=== PATIENT | female | born 1995 | race Caucasian/White ===

== ENCOUNTER 2024-08-01 19:18 | Inpatient (IN) ==
--- NOTE | 2024-08-01 20:28 | History & Physical Report ---
Date of Service August 01, 2024 Assessment & Plan (1) Term : (2) PROM (premature rupture of membranes): Plan admit, iv, labs. plan pitcon induction since no labor. fhts categ 1. History of Present Illness Chief Complaint: leaking fluid Primary Care Provider: Mayank Askew III, CRNP 29yo at 37+wks egrenard presents to LD with gross SROM, clear fluid at 600pm today. Noting few bladder pain sx, like a cramp. No bleeding. +FM PNC c/b 1. IUGR but resolved by 32wk growth u/s 2. Hypothyroid PNL rhpos, ri, gbs neg OBH: g1 GYNH: nl paps no stds Allergies Allergy/AdvReac Type Severity Reaction Status Date / Time No Known Allergies Allergy Verified 07/31/24 09:37 Home Medications Medication Instructions Recorded Confirmed Type [id number] PO 01/04/24 07/31/24 History [ Plus] levothyroxine 75 mcg tablet 75 mcg PO DAILY #90 tabs 05/14/24 07/31/24 Rx (Synthroid) Patient History Medical History (Updated 08/01/24 @ 20:31 by Courtney Rojo MD, FACOG) Varicella vaccination Hypothyroid Headache Onychomycosis Surgical History H/O oral surgery Family History (Updated 01/04/24 @ 15:20 by Minerva Ignacio RN) Mother Varicose veins of both lower extremities Grandfather (Maternal) Cancer Grandmother (Maternal) Diabetes Denies family history of Ovarian cancer Prostate cancer Myocardial infarction Breast cancer Colorectal cancer Social History (Updated 01/04/24 @ 15:19 by Minerva Ignacio RN) Smoking Status: Never smoker Second Hand Exposure: No; Do You Dip or Chew Tobacco: No; Hx Alcohol Use: No Hx Substance Use: No Preferred Language: Wolof Communication Ability: Effective Visual Impairment: No Limitations Hearing Ability: Normal Hand Frame Surgical Elastic Knitter Required: No Beliefs That Will Affect Care: None marital status: marital status details: Jorge Godfrey (26) [phone] Current Living Situation: Spouse Current Living Situation Comment: Lives with , 1 dog current occupational status: employed current occupation: Teacher Other Information That Helps Us Care for You: No Feels Safe at Home: Yes Safety Concerns: Feels Safe At This Time Childhood Exposure to Second-Hand Smoke: No Diet: regular Dental Care, Regularly: Yes Physical Activity Frequency: 3-4 Times per Week Seatbelt Use: always Sunscreen Use: Yes Assistive Devices: None Review of Systems as per Subjective / HPI Physical Exam Constitutional: WD/WN, vitals as above Respiratory: normal respiratory effort, lungs clear to auscultation Cardiovascular: Rate/Rhythm: regular rate and regular rhythm Gastrointestinal (Abdomen): soft gravid nt efw 6-7# Musculoskeletal: no edema Neurologic: grossly normal Psychiatric: A+Ox3, euthymic affect Genitourinary: OB Exam Abdomen: + vertex (by u/s) Manual OB Exam: + cervical dilation fingertip, + cervical effacement 80%, + station -2 and + amniotic fluid clear (gross srom) OB Exam Monitor Tracing: + external FHT monitor used, + external uterine monitor used, + category I and + normal FHT variability Results & Data Vital Signs (Past 12 Hours) Vital Signs Temp Pulse Resp BP 08/01/24 19:36 98.1 F 18 08/01/24 19:29 73 117/60 Coding Level of Care Code None Diagnoses Term Z34.90 PROM (premature rupture of membranes) O42.90
[2024-08-01] MEDS ORDERED: LIDOCAINE 1% LOCAL 20 ML VIAL INFIL PRN (20:52)
[2024-08-01] MEDS ORDERED: OXYTOCIN 30 UNITS/NSS 30 UNITS/500 ML BAG IV PRN (20:52)
[2024-08-01] MEDS ORDERED: CALCIUM CARBONATE 500 MG CHEWABLE TAB PO PRN (20:52)
[2024-08-01] MEDS: OXYTOCIN 30 UNITS/NSS 30 UNITS/500 ML BAG IV PRN (21:30)
[2024-08-01] MEDS: SODIUM CHLORIDE 0.9% 1,000 ML IV SCH (21:30)
[2024-08-01 21:41] LABS: Hematocrit (blood only) 36.7 % (37.0-47.0); Hemoglobin 12.3 g/dl (12.0-16.0); Mean Corpuscular Hemoglobin 30.4 pg (25.0-34.0); Mean Corpuscular Hgb Conc 33.5 g/dL (32.0-36.0); Mean Corpuscular Volume 90.6 fL (80.0-100.0); Mean Platelet Volume 8.5 fL (9.4-12.4); Platelet Count 341 K/uL (130-400); RDW Coefficient of Variation 12.4 % (11.5-14.5); RDW Standard Deviation 40.9 fL (36.4-46.3); Red Blood Count 4.05 M/uL (4.20-5.40); White Blood Count 12.75 K/ul (4.8-10.8)
[2024-08-01] MEDS ORDERED: NALOXONE HCL 1 MG in SODIUM CHLORIDE 0.9% 1,000 ML IV PRN (23:28)
[2024-08-01] MEDS ORDERED: ONDANSETRON INJ 2 MG/ML 2 ML VIAL IV PRN (23:28)
[2024-08-01] MEDS ORDERED: SODIUM CHLORIDE 0.9% PF INJ 10 ML VIAL EPI PRN (23:28)
[2024-08-01] MEDS ORDERED: diphenhydrAMINE 50 MG/ML VIAL IV PRN (23:28)
[2024-08-01] MEDS ORDERED: fentaNYL citrate PF 100 MCG/2 ML VIAL EPI PRN (23:28)
[2024-08-01] MEDS ORDERED: NALBUPHINE HCL INJ 10 MG/ML AMP IV PRN (23:28)
[2024-08-01] MEDS ORDERED: NALOXONE HCL 0.4 MG/1 ML VIAL/CARP IV PRN (23:28)
[2024-08-01] MEDS ORDERED: ePHEDrine sulfate 50 MG/ML AMP IV PRN (23:28)
[2024-08-01] MEDS ORDERED: ROPIVACAINE 0.5% PF 5 MG/ML 20 ML VIAL EPI PRN (23:28)
[2024-08-01] MEDS ORDERED: LIDOCAINE 2% MPF LOCAL 5 ML VIAL EPI PRN (23:28)
[2024-08-01] MEDS ORDERED: BUPIVACAINE 0.25% PF 30 ML VIAL EPI PRN (23:28)
--- NOTE | 2024-08-01 23:33 | Anesthesiology Consultation ---
Date of Service August 01, 2024 Assessment & Plan (1) Encounter for pre-operative examination: Chart Review Chart Review: Patient NOT seen in Pre Admission Testing and Acceptable Risk for Labor Epidural Consults Requested none History Height/Weight Height: 5 ft 4 in Weight: 86.183 kg Allergies Allergy/AdvReac Type Severity Reaction Status Date / Time No Known Allergies Allergy Verified 07/31/24 09:37 Medications Home Medications Medication Instructions Recorded Confirmed Last Taken levothyroxine 75 mcg tablet 75 mcg PO DAILY 08/01/24 08/01/24 08/01/24 vits no.124-ferrous fum 1 tab PO DAILY 08/01/24 08/01/24 Unknown 27 mg iron-folic acid 800 mcg tablet ( Vitamin) Active Medications Generic Name Dose Route Start Last Admin Trade Name Freq PRN Reason Stop Dose Admin Oxytocin 30 units in 500 mls @ 3 mls/hr 08/01/24 20:52 08/01/24 22:20 Pitocin 30 Units/Nss IV 08/03/24 20:51 0.18 units/hr .Q24H PRN 3 mls/hr Labor Induction/Augmentation Titration Protocol 0.18 UNITS/HR Sodium Chloride 1,000 mls @ 50 mls/hr 08/01/24 21:30 08/01/24 23:12 Nss IV 08/02/24 21:29 999 mls/hr .Q20H ALVARO Infusion Past Medical History Medical History (Updated 08/01/24 @ 23:33 by Abhijit Mills MD) Encounter for pre-operative examination Varicella vaccination Hypothyroid Headache Onychomycosis Exercise / Class Metabolic Activity II 4-5 Yardwork/Stairs/Walk up hill Past Family History Family History Mother Varicose veins of both lower extremities Grandfather (Maternal) Cancer Grandmother (Maternal) Diabetes Denies family history of Ovarian cancer Prostate cancer Myocardial infarction Breast cancer Colorectal cancer Past Surgical History Surgical History H/O oral surgery Past Anesthesia History No Hx of Anesthesia Complications and No Family Hx of Anesthesia Complications Social History Smoking Status: Never smoker Do You Dip or Chew Tobacco: No Hx Alcohol Use: No Hx Substance Use: No substance use type: does not use Physical Exam Vital Signs Last Vital Signs Temp 36.6 C 08/01/24 23:30 Pulse 74 08/01/24 23:55 Resp 18 08/01/24 23:30 BP 120/74 08/01/24 23:55 Pulse Ox 100 08/01/24 23:54 Testing Laboratory Results 08/01/24 21:02
[2024-08-01] MEDS: LIDOCAINE 2%/EPINEPHRINE 1:200,000 20 ML PF EPI STA (23:55)
[2024-08-01] MEDS: fentaNYL citrate PF 100 MCG/2 ML VIAL EPI STA (23:56)
[2024-08-01] MEDS: BUPIVACAINE 0.25% PF 30 ML VIAL EPI STA (23:56)
[2024-08-02] MEDS: fentANYL 2 MCG/ML BUPIVacaine 0.125%-NSS 100ML BAG EPI PRN (00:07)
[2024-08-02] MEDS: fentaNYL citrate PF 100 MCG/2 ML VIAL ONE (01:31)
[2024-08-02] MEDS: ePHEDrine sulfate 50 MG/ML AMP ONE (01:31)
[2024-08-02] MEDS: SODIUM CHLORIDE 0.9% PF INJ 10 ML VIAL ONE (01:31)
[2024-08-02] MEDS: SODIUM CHLORIDE 0.9% PF INJ 10 ML VIAL EPI STA (01:31)
[2024-08-02] MEDS: BUPIVACAINE 0.25% PF 30 ML VIAL ONE (01:31)
[2024-08-02] MEDS: fentANYL 2 MCG/ML BUPIVacaine 0.125%-NSS 100ML BAG ONE (01:31)
[2024-08-02] MEDS: LIDOCAINE 2%/EPINEPHRINE 1:200,000 20 ML PF ONE (01:31)
--- NOTE | 2024-08-02 05:06 | Labor Progress Brief Note ---
Date of Service August 02, 2024 Subjective feeling some right sided pain with ctx. Assessment & Plan (1) Term : (2) PROM (premature rupture of membranes): Plan will begin 2nd stage. fhts categ 1. +spont accels. Admission and Anticipated Discharge Date Admission Date: August 01, 2024 Physical Exam Constitutional: WD/WN, vitals as above Genitourinary: Manual OB Exam: + cervical dilation 10 cm, + cervical effac ement 100% and + station + 2 OB Exam Monitor Tracing: + external FHT monitor used, + external uterine monitor used, + category I, + normal FHT variability and + variable decelerations Results & Data Vital Signs (Past 12 Hours) Vital Signs Temp Pulse Resp BP Pulse Ox 08/02/24 04:59 103 H 97 08/02/24 04:54 98 H 100 08/02/24 04:49 109 H 99 08/02/24 04:44 116 H 100 08/02/24 04:40 117 H 125/72 08/02/24 04:39 89 100 08/02/24 04:34 76 100 08/02/24 04:29 74 100 08/02/24 04:24 78 100 08/02/24 04:19 71 100 08/02/24 04:14 77 100 08/02/24 04:10 76 111/62 08/02/24 04:09 69 100 08/02/24 04:04 76 100 08/02/24 03:59 71 100 08/02/24 03:54 82 100 08/02/24 03:49 75 100 08/02/24 03:44 74 100 08/02/24 03:39 70 100 08/02/24 03:38 73 110/64 08/02/24 03:34 71 100 08/02/24 03:30 16 08/02/24 03:30 97.7 F 16 08/02/24 03:29 70 100 08/02/24 03:24 69 100 08/02/24 03:19 76 100 08/02/24 03:14 72 100 08/02/24 03:10 69 104/59 L 08/02/24 03:09 69 100 08/02/24 03:04 70 100 08/02/24 03:00 18 08/02/24 03:00 18 08/02/24 02:59 77 100 08/02/24 02:54 72 100 08/02/24 02:49 75 100 08/02/24 02:44 93 H 100 08/02/24 02:39 72 100 08/02/24 02:38 67 116/62 08/02/24 02:34 66 100 08/02/24 02:30 18 08/02/24 02:30 18 08/02/24 02:29 64 100 08/02/24 02:24 65 100 08/02/24 02:19 68 100 08/02/24 02:14 66 100 08/02/24 02:09 64 117/70 100 08/02/24 02:04 65 100 08/02/24 02:00 16 08/02/24 02:00 16 08/02/24 01:59 79 100 08/02/24 01:54 70 100 08/02/24 01:49 67 100 08/02/24 01:44 68 100 08/02/24 01:39 62 100 08/02/24 01:38 60 108/62 08/02/24 01:34 64 100 08/02/24 01:30 16 08/02/24 01:30 97.7 F 16 08/02/24 01:29 63 100 08/02/24 01:24 63 100 08/02/24 01:19 63 100 08/02/24 01:14 69 100 08/02/24 01:09 64 100 08/02/24 01:08 60 112/64 08/02/24 01:04 64 100 08/02/24 01:00 18 08/02/24 01:00 18 08/02/24 00:59 70 100 08/02/24 00:54 87 99 08/02/24 00:49 72 99 08/02/24 00:44 83 98 08/02/24 00:39 86 100 08/02/24 00:38 80 124/70 08/02/24 00:34 73 99 08/02/24 00:32 71 122/74 08/02/24 00:30 18 08/02/24 00:30 18 08/02/24 00:29 73 99 08/02/24 00:27 70 123/71 08/02/24 00:26 83 111/68 08/02/24 00:24 70 99 08/02/24 00:21 73 111/63 08/02/24 00:19 79 99 08/02/24 00:17 71 107/58 L 08/02/24 00:14 73 99 08/02/24 00:13 71 108/59 L 08/02/24 00:11 76 107/56 L 08/02/24 00:09 77 113/62 100 08/02/24 00:07 75 116/58 L 08/02/24 00:05 78 116/58 L 08/02/24 00:04 79 100 08/02/24 00:03 75 112/65 08/02/24 00:02 85 113/68 08/02/24 00:01 76 109/64 08/01/24 23:59 99 08/01/24 23:59 75 08/01/24 23:59 114/67 08/01/24 23:57 71 08/01/24 23:57 118/70 08/01/24 23:55 74 08/01/24 23:55 120/74 08/01/24 23:54 100 08/01/24 23:54 79 08/01/24 23:49 100 08/01/24 23:49 76 08/01/24 23:44 100 08/01/24 23:44 81 08/01/24 23:39 100 08/01/24 23:39 76 08/01/24 23:39 120/67 08/01/24 23:34 100 08/01/24 23:34 81 08/01/24 23:30 18 08/01/24 23:30 97.9 F 18 08/01/24 23:29 100 08/01/24 23:29 75 08/01/24 23:24 99 08/01/24 23:24 73 08/01/24 23:19 100 08/01/24 23:19 83 08/01/24 23:02 82 08/01/24 23:02 124/71 08/01/24 22:18 74 08/01/24 22:18 117/65 08/01/24 21:30 18 08/01/24 21:30 98.1 F 18 08/01/24 19:36 98.1 F 18 08/01/24 19:29 73 117/60 Coding Level of Care Code None Diagnoses Term Z34.90 PROM (premature rupture of membranes) O42.90
[2024-08-02] MEDS ORDERED: DIPHTHER/TETAN/PERTUS Vaccine (Tdap, Adol/Adult) 0.5mL IM ONE (08:03)
[2024-08-02] MEDS ORDERED: bisacodyL 10 MG SUPP PR PRN (08:03)
[2024-08-02] MEDS ORDERED: HYDROCORTISONE ACETATE 25 MG SUPP PR PRN (08:03)
[2024-08-02] MEDS ORDERED: IBUPROFEN 600 MG TAB PO PRN (08:03)
--- NOTE | 2024-08-02 08:03 | Delivery Summary ---
Vaginal Delivery Summary Date of Service August 02, 2024 Vaginal Delivery Summary and 2nd Degree LAC The patient dilated to complete and pushed to deliver a viable female Apgars 7 and 9 via over 2nd degree perineal laceration. Mouth and nose bulb suctioned at perineum. Shoulders and body delivered with ease. was vigorous and crying at . Cord clamped at 30 seconds of life and to maternal abdomen where the cord was then doubly clamped and cut. Placenta delivered spontaneously and intact, three-vessel cord. Hemostasis achieved with dilute pitocin and uterine massage and drainage of the bladder for approximately 10 cc under sterile conditions. Cervix and sulci intact. QBL 112 cc. Laceration repaired in usual fashion with 3-0 vicryl. Mother and baby stable in recovery. [facility] Vaginal Delivery Charge Delivery Type Details: and 2nd Degree LAC
[2024-08-02] MEDS: OXYTOCIN 30 UNITS/NSS 30 UNITS/500 ML BAG IV PRN (08:28)
--- NOTE | 2024-08-02 08:55 | Anesthesia Procedure Note ---
Date of Service August 02, 2024 Anesthesia Post Epidural Note Vital Signs Vital Signs: Temp Pulse Resp BP Pulse Ox 36.9 C 88 18 108/71 95 08/02/24 07:00 08/02/24 08:38 08/02/24 07:00 08/02/24 08:38 08/02/24 07:47 Notes Mental Status: alert / awake / arousable and participated in evaluation Nausea / Vomiting: adequately controlled Pain: adequately controlled Airway Patency, RR, SpO2: stable & adequate BP & HR: stable & adequate Hydration State: stable & adequate Neuraxial Anesthesia: was administered and sensory block resolved Anesthetic Complications: no major complications apparent and Pt Satisfied with anesthetic care Epidural: Removed without complications and With tip intact
[2024-08-02] MEDS: BENZOCAINE 20% SPRY 85 APPLN/85 GM CAN EXT PRN (10:30)
[2024-08-02] MEDS: LEVOTHYROXINE SODIUM 75 MCG TABLET PO SCH (11:27)
[2024-08-02] MEDS: DOCUSATE SODIUM 100 MG CAP PO SCH (22:00)
--- NOTE | 2024-08-03 08:53 | Obstetrical Progress Note ---
Date of Service August 03, 2024 Patient doing well. Minimal bleeding, no extremity pain she has no calf tenderness she is tolerating a regular diet she is voiding well she has no depression Assessment & Plan (1) PROM (premature rupture of membranes): criteria met for discharge home no extremity pain no depression bleeding minimal discharge instructions reviewed Physical Exam Constitutional WD/WN, vitals as above well developed and well nourished Respiratory normal respiratory effort, lungs clear to auscultation normal respiratory effort Cardiovascular RRR, no murmur, no edema Gastrointestinal (Abdomen) normal bowel sounds, soft, nontender, no hepatosplenomegaly Results & Data Vital Signs (Past 12 Hours) Vital Signs Temp Pulse Resp BP O2 Del Method 08/03/24 00:30 97.9 F 80 16 108/71 Room Air 08/02/24 21:00 Room Air 08/02/24 21:00 97.7 F 87 16 107/69 Room Air
[2024-08-03] MEDS: PRENATAL VITAMIN 1 TAB PO SCH (09:20)
[2024-08-03 10:12] VITALS: RESP 18
[2024-08-03] MEDS: bisacodyL 5 MG TABEC PO SCH (23:08)
--- NOTE | 2024-08-04 06:56 | Obstetrical Progress Note ---
Date of Service August 04, 2024 Patient doing well. Minimal bleeding, no extremity pain she has no calf tenderness she is tolerating a regular diet she is voiding well she has no depression Assessment & Plan (1) Term : day 2 doing well no extremity pain no depression wishes to go home minimal bleeding instructions reviewed Physical Exam Constitutional WD/WN, vitals as above well developed and well nourished Respiratory normal respiratory effort, lungs clear to auscultation normal respiratory effort Cardiovascular RRR, no murmur, no edema Gastrointestinal (Abdomen) normal bowel sounds, soft, nontender, no hepatosplenomegaly Results & Data Vital Signs (Past 12 Hours) Vital Signs Temp Pulse Resp BP Pulse Ox O2 Del Method 08/04/24 00:40 98.2 F 74 18 107/72 97 Room Air 08/03/24 19:25 98.1 F 88 18 113/73 97 Room Air
[2024-08-04] MEDS: ACETAMINOPHEN 325 MG TAB PO PRN (09:08)
[2024-08-04 20:56] VITALS: BP 120/80; TEMP 98.2; O2SAT 96
[2024-08-04 21:57] VITALS: PULSE 84
== END 2024-08-04 22:00 | disposition home or self-care (01) | DRG 807 ==
LOC: OPB 19:18 → 4S1 19:19 → 4E2 08-02 12:37